=== PATIENT | male | born 2000 | race African-American/Black ===

== ENCOUNTER 2022-05-15 14:34 | Emergency (ER) | payer OTHER, SELFPAY ==
[2022-05-15 15:55] LABS: Absolute Lymphocytes (CBC) 1.2 K/uL (0.7-4.9); Lymphocytes % 30.4 % (15.3-44.8); MCV 87.5 fL (80-100); MPV 8.5 fL (7.6-11.3); RBC Red Blood Cell Count 5.48 M/uL (4.33-5.43)
[2022-05-15 16:07] LABS: Potassium 3.6 mmol/L (3.5-5.1)
[2022-05-15 18:08] VITALS: BP 138/78; TEMP 97.7; O2SAT 95
--- NOTE | 2022-05-17 09:35 | ER ---
Nurse's Notes [facility] Name: Otis Kerr Age: 21 yrs Sex: Male : 2000 Arrival Date: 05/15/2022 Time: 14:39 Bed 11 Private MD: Diagnosis: Acute pharyngitis, unspecified Presentation: 05/15 14:46 Chief complaint: Patient states: pt presented to ED reporting recent dx for covid and kelly strep throat x 2 days. pt reports coughing and having blood tinge sputum. Coronavirus screen: Vaccine status: Patient reports being unvaccinated. Client presents with at least one sign or symptom that may indicate coronavirus-19. Standard/surgical mask placed on the client. Ebola Screen: (+) Exposure. Initial Sepsis Screen: Does the patient meet any 2 criteria? No. Patient's initial sepsis screen is negative. Does the patient have a suspected source of infection? No. Patient's initial sepsis screen is negative. Risk Assessment: Do you want to hurt yourself or someone else? Patient reports no desire to harm self or others. Onset of symptoms was May 15, 2022. 14:46 Method Of Arrival: Ambulatory 14:46 Acuity: ROBIN 3 kelly Historical: - PMHx: 14:48 None; kelly - PSHx: 14:48 None; kelly - Immunization history:: Adult Immunizations up to date. - Social history:: Smoking status: Patient denies any tobacco usage or history of. Patient uses street drugs, marijuana. Screenin:26 Abuse screen: Denies threats or abuse. Denies injuries from another. Nutritional ph screening: No deficits noted. Tuberculosis screening: No symptoms or risk factors identified. Fall Risk None identified. Assessment: 16:25 General: Appears in no apparent distress. comfortable, Behavior is calm, cooperative, ph appropriate for age. Pain: Complains of pain in throat. Neuro: Level of Consciousness is awake, alert, obeys commands, Oriented to person, place, time, situation. Cardiovascular: Capillary refill < 3 seconds in bilateral fingers Patient's skin is warm and dry. Respiratory: Airway is patent Respiratory effort is even, unlabored. Respiratory: Reports cough that is Breath sounds are clear bilaterally. GI:. EENT: Reports pain when swallowing. Derm: Skin is pink, warm \T\ dry. Vital Signs: 14:46 BP 138 / 78; Pulse 95; Resp 19; Temp 97.7(T); Pulse Ox 95% on R/A; Weight 102.06 kg; kelly Height 5 ft. 5 in. (165.10 cm); 14:46 Body Mass Index 37.44 (102.06 kg, 165.10 cm) kelly ED Course: 14:39 Patient arrived in ED. am2 14:48 Triage completed. 15:02 Mitchel Chi PA is PHCP. [facility] 15:02 Timoteo Doty MD is Attending Physician. [facility] 15:47 D-Dimer Sent. kc6 15:47 BMP Sent. kc6 15:47 CBC with Diff Sent. kc6 15:47 Inserted saline lock: 20 gauge in right antecubital area, using aseptic technique. kc6 Blood collected. 16:25 Elaina Dubose, RN is Primary Nurse. ph 16:26 Arm band placed on Patient placed in an exam room. ph 16:26 Patient has correct armband on for positive identification. Bed in low position. Call ph light in reach. Side rails up X 1. 17:00 No provider procedures requiring assistance completed. IV discontinued, intact, ph bleeding controlled, No redness/swelling at site. Pressure dressing applied. Administered Medications: No medications were administered Medication: 16:26 VIS not applicable for this client. ph Outcome: 16:23 Discharge ordered by . [facility] 17:02 Patient left the ED. ph 17:02 Discharged to home ambulatory. ph 17:02 Condition: good 17:02 Discharge instructions given to patient, Instructed on discharge instructions, follow up and referral plans. Demonstrated understanding of instructions, follow-up care. Signatures: Mitchel Chi PA PA Elaina Rock, RN RN Yasmine Nair am2 Katty Wolfe RN RN ha Campbell, Kaitlyn kc6 Corrections: (The following items were deleted from the chart) 14:49 14:48 PMHx: Unable to Obtain; [facility]
--- NOTE | 2022-05-17 09:35 | EDPHYS ---
Physician Documentation [facility] Name: Otis Kerr Age: 21 yrs Sex: Male : 2000 Arrival Date: 05/15/2022 Time: 14:39 Bed 11 Private MD: ED Physician Timoteo Doty HPI: 05/15 15:20 This 21 yrs old Black Male presents to ER via Ambulatory with complaints of Productive jmm Cough - blood. 15:20 The patient or guardian reports cough. Onset: The symptoms/episode began/occurred jmm gradually, 2 day(s) ago. Modifying factors: The symptoms are alleviated by nothing, the symptoms are aggravated by nothing. This is a 21 year old male with no chronic medical conditions the presents emerged department with complaints of coughing up blood. Patient was recently diagnosed with both strep and coronavirus. Patient denies chest pain or shortness of breath. Denies weakness or fatigue.. Historical: - PMHx: 14:48 None; kelly - PSHx: 14:48 None; kelly - Immunization history:: Adult Immunizations up to date. - Social history:: Smoking status: Patient denies any tobacco usage or history of. Patient uses street drugs, marijuana. ROS: 16:20 Constitutional: Negative for fever, chills, and weight loss, Cardiovascular: Negative jmm for chest pain, palpitations, and edema, Respiratory: Negative for shortness of breath, cough, wheezing, and pleuritic chest pain. 16:20 All other systems are negative. Exam: 16:20 Constitutional: This is a well developed, well nourished patient who is awake, alert, jmm and in no acute distress. Head/Face: atraumatic. Eyes: EOMI, no conjunctival erythema appreciated ENT: Moist Mucus Membranes Neck: Trachea midline, Supple Chest/axilla: Normal chest wall appearance and motion. Cardiovascular: Regular rate and rhythm. No edema appreciated Respiratory: Normal respirations, no respiratory distress appreciated Abdomen/GI: Non distended Back: Normal ROM Skin: General appearance color normal MS/ Extremity: Moves all extremities, no obvious deformities appreciated, no edema noted to the lower extremities Neuro: Awake and alert Psych: Behavior is normal, Mood is normal, Patient is cooperative and pleasant Vital Signs: 14:46 BP 138 / 78; Pulse 95; Resp 19; Temp 97.7(T); Pulse Ox 95% on R/A; Weight 102.06 kg; kelly Height 5 ft. 5 in. (165.10 cm); 14:46 Body Mass Index 37.44 (102.06 kg, 165.10 cm) kelly MDM: 15:22 Patient medically screened. [facility] 16:21 Data reviewed: vital signs, nurses notes. Counseling: I had a detailed discussion with [facility] the patient and/or guardian regarding: the historical points, exam findings, and any diagnostic results supporting the discharge/admit diagnosis, the need for outpatient follow up, to return to the emergency department if symptoms worsen or persist or if there are any questions or concerns that arise at home. ED course: Patient is alert and non toxic in appearance in the ED. No signs of resp distress. D-Dimer negative. Patient advised to follow up with pcp and otherwise given strict return precautions. Patient understood and agrees with the plan of care. . 05/15 15:20 Order name: D-Dimer; Complete Time: 16:08 [facility] 05/15 15:20 Order name: BMP; Complete Time: 16:08 [facility] 05/15 15:20 Order name: Saline Lock; Complete Time: 15:47 [facility] 05/15 15:20 Order name: CBC with Diff; Complete Time: 16:08 [facility] Administered Medications: No medications were administered Disposition: 18:21 Co-signature as Attending Physician, Timoteo Doty MD. rn Disposition Summary: 05/15/22 16:23 Discharge Ordered Location: Home [facility] Condition: Stable [facility] Diagnosis - Acute pharyngitis, unspecified [facility] Followup: [facility] - With: Private Physician - When: 2 - 3 days - Reason: Recheck today's complaints, Continuance of care, Re-evaluation by your physician Discharge Instructions: - Discharge Summary Sheet [facility] - Pharyngitis [facility] Forms: - Medication Reconciliation Form [facility] - Thank You Letter [facility] - Antibiotic Education [facility] - Prescription Opioid Use [facility] - Work release form ph Signatures: Dispatcher [employer] EDMS Mitchel Chi PA PA jmm Nieto, Roman, MD MD rn Au-StageKatty raya RN RN ha Corrections: (The following items were deleted from the chart) 14:49 14:48 PMHx: Unable to Obtain; kelly kelly 16:20 15:20 This is a 21 year old male with no chronic med. jmm jmm
== END 2022-05-15 17:02 | disposition home or self-care (01) ==
LOC: ER 14:34
DX: J02.9 Acute pharyngitis, unspecified (principal); R04.2 Hemoptysis
CPT/HCPCS: 36415; 80048; 85025; 85379; 99283

== ENCOUNTER 2022-09-09 20:31 | Emergency (ER) | payer SELFPAY ==
[2022-09-09] MEDS ORDERED: dexAMETHasone 10 MG/ML VIAL ONE (21:14)
[2022-09-09] MEDS ORDERED: AMOX/K CLAV 875 MG TAB ONE (21:14)
--- NOTE | 2022-09-09 21:47 | ER ---
Nurse's Notes [facility] Name: Otis Kerr Age: 22 yrs Sex: Male : 2000 Arrival Date: 09/09/2022 Time: 20:34 Bed DIS3 Private MD: Diagnosis: Acute suppurative otitis media Presentation: 09/09 20:48 Chief complaint: Patient states: sore throat and left ear pain x2 days. Coronavirus kb3 screen: Vaccine status: Patient reports being unvaccinated. Client denies travel out of the [place] in the last 14 days. Ebola Screen: Patient negative for fever greater than or equal to 101.5 degrees Fahrenheit, and additional compatible Ebola Virus Disease symptoms Patient denies exposure to infectious person. Patient denies travel to an Ebola-affected area in the 21 days before illness onset. Initial Sepsis Screen: Does the patient meet any 2 criteria? No. Patient's initial sepsis screen is negative. Does the patient have a suspected source of infection? No. Patient's initial sepsis screen is negative. Risk Assessment: Do you want to hurt yourself or someone else? Patient reports no desire to harm self or others. Onset of symptoms was September 07, 2022. 20:48 Method Of Arrival: Ambulatory kb3 20:48 Acuity: ROBIN 4 kb3 Triage Assessment: 20:51 General: Appears in no apparent distress. Behavior is calm, cooperative. Pain: kb3 Complains of pain in left ear, left aspect of posterior pharynx and right aspect of posterior pharynx Pain does not radiate. Pain currently is 8 out of 10 on a pain scale. EENT: Reports pain in left ear. Historical: - Allergies: 20:51 No Known Allergies; kb3 - Home Meds: 20:51 amlodipine 10 mg tab 1 tab once daily [Active]; kb3 - PMHx: 20:51 Hypertensive disorder; kb3 - PSHx: 20:51 None; kb3 - Immunization history:: Adult Immunizations up to date, Client reports receiving the 2nd dose of the Covid vaccine, Last tetanus immunization: up to date. - Social history:: Smoking status: Patient denies any tobacco usage or history of. Screenin:54 Abuse screen: Denies threats or abuse. Denies injuries from another. Nutritional kd3 screening: No deficits noted. Tuberculosis screening: No symptoms or risk factors identified. Fall Risk None identified. Vital Signs: 20:48 Pulse 97; Resp 20; Temp 98.3; Pulse Ox 100% ; Weight 96.16 kg; Height 5 ft. 6 in. kb3 (167.64 cm); Pain 8/10; 20:53 BP 153 / 100; kb3 21:24 BP 145 / 94; Pulse 98; Resp 16; Temp 98.7; Pulse Ox 98% ; rv1 20:48 Body Mass Index 34.22 (96.16 kg, 167.64 cm) kb3 ED Course: 20:34 Patient arrived in ED. bp1 20:51 Triage completed. kb3 20:51 Arm band placed on left wrist. kb3 20:54 Latonia Deleon FNP-C is [facility]. snw 20:54 Thomas Julian MD is Attending Physician. snw 21:01 Halina Aguilera, RN is Primary Nurse. kd3 21:14 Flu Sent. rv1 21:33 Flu Sent. kd3 21:54 Patient has correct armband on for positive identification. kd3 21:54 No provider procedures requiring assistance completed. Patient did not have IV access kd3 during this emergency room visit. Administered Medications: 21:18 Drug: Augmentin (Amoxicillin-Clavulanate) 875 mg Route: PO; kd3 21:54 Follow up: Response: No adverse reaction kd3 21:18 Drug: Decadron (dexamethasone) 10 mg Route: IM; Site: left deltoid; kd3 21:54 Follow up: Response: No adverse reaction kd3 Medication: 21:54 VIS not applicable for this client. kd3 Outcome: 21:46 Discharge ordered by . snw 21:54 Discharged to home ambulatory. kd3 21:54 Condition: stable 21:54 Discharge instructions given to patient, Instructed on discharge instructions, follow up and referral plans. medication usage, Demonstrated understanding of instructions, follow-up care, medications, Prescriptions given X 3. 21:55 Patient left the ED. kd3 Signatures: Latonia Deleon FNP-C [employer] MA[employer]GER [employer] Fabiola Cavazos bp1 Halina Aguilera, RN RN kd3 Phyllis Bernstein, ELIAN RN kb3 Rosi Issa rv1
--- NOTE | 2022-09-09 21:47 | EDPHYS ---
Physician Documentation [facility] Name: Otis Kerr Age: 22 yrs Sex: Male : 2000 Arrival Date: 09/09/2022 Time: 20:34 Bed DIS3 Private MD: ED Physician Thomas Julian HPI: 09/09 21:16 This 22 yrs old Black Male presents to ER via Ambulatory with complaints of Ear Pain, snw Sore Throat. 21:16 The patient presents with a fullness, pain, tenderness. The complaints affect the left snw ear. Onset: The symptoms/episode began/occurred suddenly, 2 day(s) ago, and became persistent. Modifying factors: The symptoms are alleviated by nothing. Severity of symptoms: At their worst the symptoms were moderate. The patient has experienced a previous episode. The patient has not recently seen a physician. using left over cortisporin drops and placing cotton balls in canal. Historical: - Allergies: 20:51 No Known Allergies; kb3 - Home Meds: 20:51 amlodipine 10 mg tab 1 tab once daily [Active]; kb3 - PMHx: 20:51 Hypertensive disorder; kb3 - PSHx: 20:51 None; kb3 - Immunization history:: Adult Immunizations up to date, Client reports receiving the 2nd dose of the Covid vaccine, Last tetanus immunization: up to date. - Social history:: Smoking status: Patient denies any tobacco usage or history of. ROS: 21:15 Constitutional: Negative for fever, chills, and weight loss, Eyes: Negative for injury, snw pain, redness, and discharge, Neck: Negative for injury, pain, and swelling, Cardiovascular: Negative for chest pain, palpitations, and edema, Respiratory: Negative for shortness of breath, cough, wheezing, and pleuritic chest pain, Abdomen/GI: Negative for abdominal pain, nausea, vomiting, diarrhea, and constipation, Back: Negative for injury and pain, : Negative for injury, bleeding, discharge, and swelling, MS/Extremity: Negative for injury and deformity, Skin: Negative for injury, rash, and discoloration, Neuro: Negative for headache, weakness, numbness, tingling, and seizure. 21:15 ENT: Positive for ear pain, sore throat, using cortisporin drops. Exam: 21:15 Constitutional: This is a well developed, well nourished patient who is awake, alert, snw and in no acute distress. Head/Face: Normocephalic, atraumatic. Eyes: Pupils equal round and reactive to light, extra-ocular motions intact. Lids and lashes normal. Conjunctiva and sclera are non-icteric and not injected. Cornea within normal limits. Periorbital areas with no swelling, redness, or edema. Neck: Trachea midline, no thyromegaly or masses palpated, and no cervical lymphadenopathy. Supple, full range of motion without nuchal rigidity, or vertebral point tenderness. No Meningismus. Chest/axilla: Normal chest wall appearance and motion. Nontender with no deformity. No lesions are appreciated. Cardiovascular: Regular rate and rhythm with a normal S1 and S2. No gallops, murmurs, or rubs. Normal PMI, no JVD. No pulse deficits. Respiratory: Lungs have equal breath sounds bilaterally, clear to auscultation and percussion. No rales, rhonchi or wheezes noted. No increased work of breathing, no retractions or nasal flaring. Abdomen/GI: Soft, non-tender, with normal bowel sounds. No distension or tympany. No guarding or rebound. No evidence of tenderness throughout. Back: No spinal tenderness. No costovertebral tenderness. Full range of motion. Skin: Warm, dry with normal turgor. Normal color with no rashes, no lesions, and no evidence of cellulitis. MS/ Extremity: Pulses equal, no cyanosis. Neurovascular intact. Full, normal range of motion. Neuro: Awake and alert, GCS 15, oriented to person, place, time, and situation. Cranial nerves II-XII grossly intact. Motor strength 5/5 in all extremities. Sensory grossly intact. Cerebellar exam normal. Normal gait. 21:15 ENT: External ear(s): are unremarkable, Ear canal(s): foreign body, a piece of a Q-tip, in the left external ear canal, or exudate, Nose: is normal, Mouth: is normal, Posterior pharynx: erythema, that is moderate, Voice: is normal. Vital Signs: 20:48 Pulse 97; Resp 20; Temp 98.3; Pulse Ox 100% ; Weight 96.16 kg; Height 5 ft. 6 in. kb3 (167.64 cm); Pain 8/10; 20:53 BP 153 / 100; kb3 21:24 BP 145 / 94; Pulse 98; Resp 16; Temp 98.7; Pulse Ox 98% ; rv1 20:48 Body Mass Index 34.22 (96.16 kg, 167.64 cm) kb3 MDM: 21:06 Patient medically screened. snw 21:17 Data reviewed: vital signs, nurses notes. Data interpreted: Pulse oximetry: on room air snw is 100 %. Interpretation: normal. Counseling: I had a detailed discussion with the patient and/or guardian regarding: the historical points, exam findings, and any diagnostic results supporting the discharge/admit diagnosis, the presence of at least one elevated blood pressure reading (>120/80) during this emergency department visit, the need for outpatient follow up, to return to the emergency department if symptoms worsen or persist or if there are any questions or concerns that arise at home. Response to treatment: the patient's symptoms have mildly improved after treatment. Special discussion: I have referred the patient to see his PCP for further evaluation of high blood pressure. Based on the history and exam findings, there is no indication for further emergent testing or inpatient evaluation. I discussed with the patient/guardian the need to see the ENT specialist for further evaluation of the symptoms. I discussed with the patient/guardian the need to see the primary care provider for further evaluation of the symptoms. 09/09 21:05 Order name: Flu; Complete Time: 21:45 snw Administered Medications: 21:18 Drug: Augmentin (Amoxicillin-Clavulanate) 875 mg Route: PO; kd3 21:54 Follow up: Response: No adverse reaction kd3 21:18 Drug: Decadron (dexamethasone) 10 mg Route: IM; Site: left deltoid; kd3 21:54 Follow up: Response: No adverse reaction kd3 Disposition: 09/10 02:11 Co-signature as Attending Physician, Thomas Julian MD I agree with the assessment and rt plan of care. Disposition Summary: 09/09/22 21:46 Discharge Ordered Location: Home snw Condition: Stable snw Diagnosis - Acute suppurative otitis media snw Followup: snw - With: Emergency Department - When: As needed - Reason: Worsening of condition Followup: snw - With: Private Physician - When: 2 - 3 days - Reason: Recheck today's complaints, Continuance of care, Re-evaluation by your physician Discharge Instructions: - Discharge Summary Sheet snw - Otitis Media, Adult snw - Upper Respiratory Infection, Adult snw Forms: - Medication Reconciliation Form snw - Thank You Letter snw - Antibiotic Education snw - Prescription Opioid Use snw - Work release form snw Prescriptions: - Augmentin 875-125 mg Oral Tablet - take 1 tablet by ORAL route every 12 hours for 10 days; 20 tablet; Refills: 0, snw Product Selection Permitted - Zyrtec 10 mg Oral Tablet - take 1 tablet by ORAL route once daily As needed; 20 tablet; Refills: 0, snw Product Selection Permitted - Pepcid 20 mg Oral Tablet - take 1 tablet by ORAL route once daily; 20 tablet; Refills: 0, Product snw Selection Permitted Signatures: Dispatcher [employer] EDMS Latonia Deleon FNP-C COMPLAINT INVESTIGATOR-Csnw Halina Aguilera RN RN kd3 Phyllis Bernstein RN RN kb3 Thomas Julian MD MD rt
[2022-09-09 22:03] VITALS: BP 145/94; TEMP 98.7; O2SAT 98
== END 2022-09-09 21:55 | disposition home or self-care (01) ==
LOC: ER 20:31
DX: H66.002 Acute suppurative otitis media without spontaneous rupture of ear drum, left ear (principal); I10 Essential (primary) hypertension
CPT/HCPCS: 87804; 96372; 99283; J1100

== ENCOUNTER 2022-10-01 10:38 | Emergency (ER) | payer SELFPAY ==
--- NOTE | 2022-10-01 10:56 | ER ---
Nurse's Notes [facility] Name: Otis Kerr Age: 22 yrs Sex: Male : 2000 Arrival Date: 10/01/2022 Time: 10:39 Bed 13 Private MD: Diagnosis: Acute serous otitis media, left ear Presentation: 10/01 10:46 Chief complaint: Patient states: "I was told to get my ear checked out after I finished ss my antibiotics. I don't have pain, but sometimes in the morning when I'm laying down, it feels clogged.". Coronavirus screen: Client denies travel out of the [place] in the last 14 days. Ebola Screen: Patient denies exposure to infectious person. Patient denies travel to an Ebola-affected area in the 21 days before illness onset. Initial Sepsis Screen: Does the patient meet any 2 criteria? No. Patient's initial sepsis screen is negative. Does the patient have a suspected source of infection? No. Patient's initial sepsis screen is negative. Risk Assessment: Do you want to hurt yourself or someone else? Patient reports no desire to harm self or others. Onset of symptoms is unknown. 10:46 Method Of Arrival: Ambulatory ss 10:46 Acuity: ROBIN 5 ss Historical: - Allergies: 10:48 No Known Allergies; ss - Home Meds: 11:02 amlodipine 10 mg tab 1 tab once daily [Active]; kc6 - PMHx: 10:48 Hypertensive disorder; ss - PSHx: 11:02 None; kc6 - Immunization history:: Client reports having NOT received the Covid vaccine. - Social history:: Smoking status: Patient denies any tobacco usage or history of. Screenin:58 [facility] ED Fall Risk Assessment (Adult) History of falling in the last 3 months, kc6 including since admission No falls in past 3 months (0 pts) Confusion or Disorientation No (0 pts) Intoxicated or Sedated No (0 pts) Impaired Gait No (0 pts) Mobility Assist Device Used No (0 pt) Altered Elimination No (0 pt) Score/Fall Risk Level 0 - 2 = Low Risk. Abuse screen: Denies threats or abuse. Denies injuries from another. Nutritional screening: No deficits noted. Tuberculosis screening: No symptoms or risk factors identified. Assessment: 10:56 General: Appears in no apparent distress. comfortable, Behavior is calm, cooperative, kc6 appropriate for age. Pain: Complains of pain in left ear Pain does not radiate. Pain currently is 2 out of 10 on a pain scale. Quality of pain is described as sharp, Pain began gradually, Is intermittent, Alleviated by rest, Also complains of no other associated symptoms. Neuro: Almeida Agitation-Sedation Scale (RASS): 0 - Alert and Calm Level of Consciousness is awake, alert, obeys commands, Oriented to person, place, time, situation, Appropriate for age. Cardiovascular: Heart tones S1 S2 present Capillary refill < 3 seconds. Respiratory: Airway is patent Trachea midline Respiratory effort is even, unlabored, Respiratory pattern is regular, symmetrical, Breath sounds are clear bilaterally. GI: No signs and/or symptoms were reported involving the gastrointestinal system. : No signs and/or symptoms were reported regarding the genitourinary system. EENT: Reports pain in left ear. Derm: No signs and/or symptoms reported regarding the dermatologic system. Skin is intact, Skin is pink, warm \\T\\ dry. Musculoskeletal: No signs and/or symptoms reported regarding the musculoskeletal system. Circulation, motion, and sensation intact. Capillary refill < 3 seconds, Range of motion: intact in all extremities. Vital Signs: 10:46 BP 130 / 84; Pulse 83; Resp 16; Temp 97.9(O); Pulse Ox 100% on R/A; Weight 96.16 kg; ss Pain 0/10; ED Course: 10:39 Patient arrived in ED. as 10:40 [facility] 10:40 Mian Ag MD is Attending Physician. [facility] 10:48 Triage completed. ss 10:48 Domonique Navarro RN is Primary Nurse. kc6 10:48 Arm band placed on right wrist. ss 10:58 Patient has correct armband on for positive identification. Bed in low position. Call kc6 light in reach. Side rails up X 1. 10:58 No provider procedures requiring assistance completed. Patient did not have IV access kc6 during this emergency room visit. Administered Medications: No medications were administered Medication: 11:02 VIS not applicable for this client. kc6 Outcome: 10:56 Discharge ordered by . [facility] 11:02 Discharged to home ambulatory. kc6 11:02 Condition: stable 11:02 Discharge instructions given to patient, Instructed on discharge instructions, follow up and referral plans. medication usage, Demonstrated understanding of instructions, follow-up care, medications, Prescriptions given X 1. 11:03 Patient left the ED. kc6 Signatures: Mitchel Chi PA PA jmm Martinez, Amelia as Smirch, Shelby, Domonique Toscano RN, RN RN kc6
--- NOTE | 2022-10-01 10:56 | EDPHYS ---
Physician Documentation [facility] Name: Otis Kerr Age: 22 yrs Sex: Male : 2000 Arrival Date: 10/01/2022 Time: 10:39 Bed 13 Private MD: ED Physician Mian Ag HPI: 10/01 12:31 This 22 yrs old Black Male presents to ER via Ambulatory with complaints of recheck on [facility] ear infection. 12:31 Onset: The symptoms/episode began/occurred gradually, 1 week(s) ago. Is a 22-year-old [facility] male with history of hypertension the presents emerged department with complaints of ongoing left ear drainage. Patient was treated with oral antibiotics approximately a week ago and has finished this course. States he cannot hear well in the left ear. Historical: - Allergies: 10:48 No Known Allergies; ss - Home Meds: 11:02 amlodipine 10 mg tab 1 tab once daily [Active]; kc6 - PMHx: 10:48 Hypertensive disorder; ss - PSHx: 11:02 None; kc6 - Immunization history:: Client reports having NOT received the Covid vaccine. - Social history:: Smoking status: Patient denies any tobacco usage or history of. ROS: 12:31 Constitutional: Negative for fever, chills, and weight loss. [facility] 12:31 ENT: Positive for ear pain. 12:31 All other systems are negative. Exam: 12:31 Constitutional: This is a well developed, well nourished patient who is awake, alert, jmm and in no acute distress. Head/Face: atraumatic. Eyes: EOMI, no conjunctival erythema appreciated 12:31 Neck: Trachea midline, Supple Chest/axilla: Normal chest wall appearance and motion. Cardiovascular: Regular rate and rhythm. No edema appreciated Respiratory: Normal respirations, no respiratory distress appreciated Abdomen/GI: Non distended Back: Normal ROM Skin: General appearance color normal MS/ Extremity: Moves all extremities, no obvious deformities appreciated, no edema noted to the lower extremities Neuro: Awake and alert Psych: Behavior is normal, Mood is normal, Patient is cooperative and pleasant 12:31 ENT: Ear canal(s): purulent discharge, that is moderate, in the left canal. Vital Signs: 10:46 BP 130 / 84; Pulse 83; Resp 16; Temp 97.9(O); Pulse Ox 100% on R/A; Weight 96.16 kg; ss Pain 0/10; MDM: 10:55 Patient medically screened. [facility] 12:33 Data reviewed: vital signs, nurses notes. ED course: A small curette was used to remove jmm the hard and purulent material from the left canal. I did visualize an erythematous tympanic membrane. No obvious perforation appreciated. Patient will be initiated on cephalosporin. Advised follow-up with ENT for further evaluation. Patient understood and agrees plan of care.. Administered Medications: No medications were administered Disposition Summary: 10/01/22 10:56 Discharge Ordered Location: Home [facility] Condition: Stable [facility] Diagnosis - Acute serous otitis media, left ear [facility] Followup: [facility] - With: Private Physician - When: 2 - 3 days - Reason: Recheck today's complaints, Continuance of care, Re-evaluation by your physician Discharge Instructions: - Discharge Summary Sheet [facility] - Otitis Media, Adult [facility] Forms: - Medication Reconciliation Form [facility] - Thank You Letter [facility] - Antibiotic Education [facility] - Prescription Opioid Use [facility] Prescriptions: - cefdinir 300 mg Oral capsule - take 1 capsule by ORAL route every 12 hours for 10 days; 20 capsule; Refills: [facility] 0, Product Selection Permitted Signatures: Mitchel Chi PA PA jmm Smirch, Shelby, ELIAN RN Domonique Esquivel RN RN kc6
[2022-10-01 11:07] VITALS: BP 130/84; TEMP 97.9; O2SAT 100
== END 2022-10-01 11:03 | disposition home or self-care (01) ==
LOC: ER 10:38
DX: H65.02 Acute serous otitis media, left ear (principal)
CPT/HCPCS: 99282

== ENCOUNTER 2022-10-03 13:18 | Emergency (ER) | payer SELFPAY ==
--- NOTE | 2022-10-03 13:29 | EDPHYS ---
Physician Documentation [facility] Name: Otis Kerr Age: 22 yrs Sex: Male : 2000 Arrival Date: 10/03/2022 Time: 13:20 Bed IW1 Private MD: ED Physician Regan Pride HPI: 10/03 13:28 This 22 yrs old Black Male presents to ER via Ambulatory with complaints of Ear Pain. kb 13:28 The patient presents with drainage, a fullness. The complaints affect the right ear. kb Onset: The symptoms/episode began/occurred today. Modifying factors: The symptoms are alleviated by nothing, the symptoms are aggravated by nothing. Associated signs and symptoms: The patient has no apparent associated signs or symptoms. Severity of symptoms: At their worst the symptoms were moderate in the emergency department the symptoms are unchanged. The patient has not experienced similar symptoms in the past. The patient has not recently seen a physician. Pt reports "clogged and draining" right ear that started this morning. . Historical: - Allergies: 13:27 No Known Allergies; iw - Home Meds: 13:27 amlodipine 10 mg tab 1 tab once daily [Active]; iw - PMHx: 13:27 Hypertensive disorder; iw ROS: 13:27 Constitutional: Negative for fever, chills, and weight loss. kb 13:27 ENT: Positive for drainage from ear(s), ear pain. 13:27 All other systems are negative. Exam: 13:27 Constitutional: This is a well developed, well nourished patient who is awake, alert, kb and in no acute distress. Head/Face: Normocephalic, atraumatic. Cardiovascular: Regular rate and rhythm with a normal S1 and S2. No gallops, murmurs, or rubs. No pulse deficits. Respiratory: Respirations even and unlabored. No increased work of breathing. Talking in full sentences Skin: Warm, dry with normal turgor. Normal color. MS/ Extremity: Pulses equal, no cyanosis. Neurovascular intact. Full, normal range of motion. Neuro: Awake and alert, GCS 15, oriented to person, place, time, and situation. Moves all extremities. Normal gait. Psych: Awake, alert, with orientation to person, place and time. Behavior, mood, and affect are within normal limits. 13:27 ENT: External ear(s): are unremarkable, Ear canal(s): erythema, that is minimal, bilaterally, purulent discharge, that is moderate, bilaterally, swelling, that is minimal, bilaterally, TM's: are normal. Vital Signs: 13:27 BP 138 / 90; Pulse 90; Resp 16; Temp 98.2; Pulse Ox 100% on R/A; iw MDM: 13:27 Patient medically screened. kb 13:27 Data reviewed: vital signs, nurses notes. Data interpreted: Pulse oximetry: on room air kb is 100 %. Interpretation: normal. Counseling: I had a detailed discussion with the patient and/or guardian regarding: the historical points, exam findings, and any diagnostic results supporting the discharge/admit diagnosis, the need for outpatient follow up, an ENT specialist, to return to the emergency department if symptoms worsen or persist or if there are any questions or concerns that arise at home. Administered Medications: No medications were administered Disposition: 16:19 Co-signature as Attending Physician, Regan Pride DO I was immediately available onsite ms3 in the emergency department for consultation in the care of the patient. Disposition Summary: 10/03/22 13:29 Discharge Ordered Location: Home kb Condition: Stable kb Diagnosis - Otitis externa in other diseases classified elsewhere, bilateral kb Followup: kb - With: Emergency Department - When: As needed - Reason: Worsening of condition Followup: kb - With: Private Physician - When: 2 - 3 days - Reason: Recheck today's complaints, Continuance of care, Re-evaluation by your physician Discharge Instructions: - Discharge Summary Sheet kb - Otitis Externa, [id number] kb - Ear Drops, Adult, [id number] kb Forms: - Medication Reconciliation Form kb - Thank You Letter kb - Antibiotic Education kb - Prescription Opioid Use kb Prescriptions: - Ciprodex 0.3-0.1 % Otic Drops, Suspension - instill 4 drops by OTIC route every 12 hours for 7 days , for ears ONLY; 1 kb Container; Refills: 0, Product Selection Permitted Signatures: Roxana Smiley, Esther Ohara RN RN iw Sims, Marcus, DO DO ms3
--- NOTE | 2022-10-03 13:29 | ER ---
Nurse's Notes [facility] Name: Otis Kerr Age: 22 yrs Sex: Male : 2000 Arrival Date: 10/03/2022 Time: 13:20 Bed IW1 Private MD: Diagnosis: Otitis externa in other diseases classified elsewhere, bilateral Presentation: 10/03 13:26 Chief complaint: Patient states: faby ear pain has been on oral abx. Coronavirus screen: iw At this time, the client does not indicate any symptoms associated with coronavirus-19. Ebola Screen: Patient negative for fever greater than or equal to 101.5 degrees Fahrenheit, and additional compatible Ebola Virus Disease symptoms Patient denies exposure to infectious person. Patient denies travel to an Ebola-affected area in the 21 days before illness onset. No symptoms or risks identified at this time. Initial Sepsis Screen: Does the patient meet any 2 criteria? No. Patient's initial sepsis screen is negative. Does the patient have a suspected source of infection? No. Patient's initial sepsis screen is negative. Risk Assessment: Do you want to hurt yourself or someone else? Patient reports no desire to harm self or others. Onset of symptoms was October 03, 2022. 13:26 Method Of Arrival: Ambulatory iw 13:26 Acuity: ROBIN 5 iw Historical: - Allergies: 13:27 No Known Allergies; iw - Home Meds: 13:27 amlodipine 10 mg tab 1 tab once daily [Active]; iw - PMHx: 13:27 Hypertensive disorder; iw Vital Signs: 13:27 BP 138 / 90; Pulse 90; Resp 16; Temp 98.2; Pulse Ox 100% on R/A; iw ED Course: 13:20 Patient arrived in ED. rg4 13:21 [facility] kb 13:21 Regan Pride DO is Attending Physician. kb 13:27 Triage completed. iw 13:27 Arm band placed on. iw 13:28 Esther Chisholm, RN is Primary Nurse. iw Administered Medications: No medications were administered Outcome: 13:29 Discharge ordered by . kb 13:37 Patient left the ED. iw Signatures: Roxana Smiley FNP-C FNP-Esther Fitzgerald, RN RN iw Apple Alvarez rg4 Corrections: (The following items were deleted from the chart) 13:28 13:27 Pulse 90bpm; Resp 16bpm; Pulse Ox 100% RA; Temp 98.2F; iw iw
[2022-10-03 13:44] VITALS: BP 138/90; TEMP 98.2; O2SAT 100
== END 2022-10-03 13:37 | disposition home or self-care (01) ==
LOC: ER 13:18
DX: H60.8X3 Other otitis externa, bilateral (principal); I10 Essential (primary) hypertension
CPT/HCPCS: 99281

== ENCOUNTER 2022-10-14 16:42 | Emergency (ER) | payer SELFPAY ==
--- NOTE | 2022-10-14 17:23 | ER ---
Nurse's Notes [facility] Name: Otis Kerr Age: 22 yrs Sex: Male : 2000 Arrival Date: 10/14/2022 Time: 16:43 Bed IW3 Private MD: Diagnosis: Pruritus, unspecified Presentation: 10/14 17:05 Chief complaint: Patient states: head to toe itching for 3 days or more. Coronavirus kb3 screen: Vaccine status: Patient reports being unvaccinated. Client denies travel out of the [place] in the last 14 days. Ebola Screen: Patient negative for fever greater than or equal to 101.5 degrees Fahrenheit, and additional compatible Ebola Virus Disease symptoms Patient denies exposure to infectious person. Patient denies travel to an Ebola-affected area in the 21 days before illness onset. Initial Sepsis Screen: Does the patient meet any 2 criteria? No. Patient's initial sepsis screen is negative. Does the patient have a suspected source of infection? No. Patient's initial sepsis screen is negative. Risk Assessment: Do you want to hurt yourself or someone else? Patient reports no desire to harm self or others. Onset of symptoms was October 10, 2022. 17:05 Method Of Arrival: Ambulatory kb3 17:05 Acuity: ROBIN 4 kb3 Triage Assessment: 17:07 General: Appears in no apparent distress. Behavior is calm, cooperative. Pain: Denies kb3 pain. Historical: - Allergies: 17:07 No Known Allergies; kb3 - Home Meds: 17:07 amlodipine 10 mg tab 1 tab once daily [Active]; kb3 - PMHx: 17:07 Hypertensive disorder; kb3 - PSHx: 17:07 None; kb3 - Immunization history:: Adult Immunizations up to date, Client reports having NOT received the Covid vaccine. Last tetanus immunization: unknown. - Social history:: Smoking status: Patient denies any tobacco usage or history of. Screenin:10 [facility] ED Fall Risk Assessment (Adult) History of falling in the last 3 months, kb3 including since admission No falls in past 3 months (0 pts) Confusion or Disorientation No (0 pts) Intoxicated or Sedated No (0 pts) Impaired Gait No (0 pts) Mobility Assist Device Used No (0 pt) Altered Elimination No (0 pt) Score/Fall Risk Level 0 - 2 = Low Risk Oriented to surroundings, Maintained a safe environment, Educated pt \T\ family on fall prevention, incl call for assistance when getting out of bed, Assessed \T\ reinforced patient's understanding of fall precautions, Provided non-skid footwear, Hourly rounding (assess needs \T\ fall precautionary measures) done, Used ambulatory aids as needed (educated on \T\ assisted with), Used gait belt as appropriate. Abuse screen: Denies threats or abuse. Denies injuries from another. Nutritional screening: No deficits noted. Tuberculosis screening: No symptoms or risk factors identified. Assessment: 17:10 General: see triage note. kb3 17:10 Derm: Reports itching. kb3 Vital Signs: 17:05 BP 127 / 88; Pulse 92; Resp 20; Temp 98.8; Pulse Ox 99% ; Weight 96.16 kg; Height 5 ft. kb3 6 in. (167.64 cm); Pain 0/10; 17:05 Body Mass Index 34.22 (96.16 kg, 167.64 cm) kb3 ED Course: 16:43 Patient arrived in ED. rg4 16:48 Latonia Deleon FNP-C [facility] snw 16:48 Timoteo Doty MD is Attending Physician. snw 17:07 Triage completed. kb3 17:07 Arm band placed on right wrist. kb3 17:10 Patient has correct armband on for positive identification. kb3 17:10 No provider procedures requiring assistance completed. Patient did not have IV access kb3 during this emergency room visit. 17:54 Phyllis Bernstein, RN is Primary Nurse. kb3 Administered Medications: No medications were administered Medication: 17:10 VIS not applicable for this client. kb3 Outcome: 17:23 Discharge ordered by . snw 17:30 Discharged to home ambulatory. kb3 17:30 Condition: stable kb3 17:30 Discharge instructions given to patient, Instructed on discharge instructions, follow up and referral plans. medication usage, Demonstrated understanding of instructions, follow-up care, medications, Prescriptions given X 3. 17:57 Patient left the ED. kb3 Signatures: Latonia Deleon FNP-C RN CLINICAL-Rheaw Apple Alvarez rg4 Phyllis Bernstein, RN RN kb3 Corrections: (The following items were deleted from the chart) 17:55 17:05 Pulse 92bpm; Resp 20bpm; Pulse Ox 99%; Temp 98.8F; 96.16 kg; Height 5 ft. 6 in.; kb3 BMI: 34.2; kb3
--- NOTE | 2022-10-14 17:23 | EDPHYS ---
Physician Documentation [facility] Name: Otis Kerr Age: 22 yrs Sex: Male : 2000 Arrival Date: 10/14/2022 Time: 16:43 Bed IW3 Private MD: ED Physician Timoteo Doty HPI: 10/14 17:31 This 22 yrs old Black Male presents to ER via Ambulatory with complaints of Itching All snw Over. 17:31 The patient's rash thought to be caused by an unknown cause. The rash is located on the snw body diffusely. The rash can be described as patchy. Onset: The symptoms/episode began/occurred acutely. Associated signs and symptoms: Pertinent positives: itching, Pertinent negatives: fever, nausea, Pain swelling of lips, swelling of throat, swelling of tongue. Severity of symptoms: At their worst the symptoms were mild moderate. Treatment given at home: none. The patient has not experienced similar symptoms in the past. The patient has been recently seen by a physician: The patient has been recently seen at the [facility] Emergency Department, for unrelated complaints. Historical: - Allergies: 17:07 No Known Allergies; kb3 - Home Meds: 17:07 amlodipine 10 mg tab 1 tab once daily [Active]; kb3 - PMHx: 17:07 Hypertensive disorder; kb3 - PSHx: 17:07 None; kb3 - Immunization history:: Adult Immunizations up to date, Client reports having NOT received the Covid vaccine. Last tetanus immunization: unknown. - Social history:: Smoking status: Patient denies any tobacco usage or history of. ROS: 17:29 Constitutional: Negative for fever, chills, and weight loss, Eyes: Negative for injury, snw pain, redness, and discharge, ENT: Negative for injury, pain, and discharge, Neck: Negative for injury, pain, and swelling, Cardiovascular: Negative for chest pain, palpitations, and edema, Respiratory: Negative for shortness of breath, cough, wheezing, and pleuritic chest pain, Abdomen/GI: Negative for abdominal pain, nausea, vomiting, diarrhea, and constipation, Back: Negative for injury and pain, : Negative for injury, bleeding, discharge, and swelling, MS/Extremity: Negative for injury and deformity, Neuro: Negative for headache, weakness, numbness, tingling, and seizure, Psych: Negative for depression, anxiety, suicide ideation, homicidal ideation, and hallucinations. 17:29 Skin: Positive for rash, itching. Exam: 17:28 Constitutional: This is a well developed, well nourished patient who is awake, alert, snw and in no acute distress. Head/Face: Normocephalic, atraumatic. Eyes: Pupils equal round and reactive to light, extra-ocular motions intact. Lids and lashes normal. Conjunctiva and sclera are non-icteric and not injected. Cornea within normal limits. Periorbital areas with no swelling, redness, or edema. ENT: Nares patent. No nasal discharge, no septal abnormalities noted. Tympanic membranes are normal and external auditory canals are clear. Oropharynx with no redness, swelling, or masses, exudates, or evidence of obstruction, uvula midline. Mucous membranes moist. Neck: Trachea midline, no thyromegaly or masses palpated, and no cervical lymphadenopathy. Supple, full range of motion without nuchal rigidity, or vertebral point tenderness. No Meningismus. Chest/axilla: Normal chest wall appearance and motion. Nontender with no deformity. No lesions are appreciated. Cardiovascular: Regular rate and rhythm with a normal S1 and S2. No gallops, murmurs, or rubs. Normal PMI, no JVD. No pulse deficits. Respiratory: Lungs have equal breath sounds bilaterally, clear to auscultation and percussion. No rales, rhonchi or wheezes noted. No increased work of breathing, no retractions or nasal flaring. Abdomen/GI: Soft, non-tender, with normal bowel sounds. No distension or tympany. No guarding or rebound. No evidence of tenderness throughout. Back: No spinal tenderness. No costovertebral tenderness. Full range of motion. MS/ Extremity: Pulses equal, no cyanosis. Neurovascular intact. Full, normal range of motion. Neuro: Awake and alert, GCS 15, oriented to person, place, time, and situation. Cranial nerves II-XII grossly intact. Motor strength 5/5 in all extremities. Sensory grossly intact. Cerebellar exam normal. Normal gait. Psych: Awake, alert, with orientation to person, place and time. Behavior, mood, and affect are within normal limits. 17:28 Skin: Appearance: normal except for affected area, consistent with scabies. Vital Signs: 17:05 BP 127 / 88; Pulse 92; Resp 20; Temp 98.8; Pulse Ox 99% ; Weight 96.16 kg; Height 5 ft. kb3 6 in. (167.64 cm); Pain 0/10; 17:05 Body Mass Index 34.22 (96.16 kg, 167.64 cm) kb3 MDM: 17:09 Patient medically screened. snw 17:28 Data reviewed: vital signs, nurses notes. Data interpreted: Pulse oximetry: on room air snw is 99 %. Interpretation: normal. Test interpretation: by ED physician or midlevel provider: none. Counseling: I had a detailed discussion with the patient and/or guardian regarding: the historical points, exam findings, and any diagnostic results supporting the discharge/admit diagnosis, the need for outpatient follow up, to return to the emergency department if symptoms worsen or persist or if there are any questions or concerns that arise at home. Special discussion: Based on the history and exam findings, there is no indication for further emergent testing or inpatient evaluation. I discussed with the patient/guardian the need to see the primary care provider for further evaluation of the symptoms. 17:29 Differential diagnosis: allergic reaction, scabies, viral exanthum. snw Administered Medications: No medications were administered Disposition: 18:06 Co-signature as Attending Physician, Timoteo Doty MD. rn Disposition Summary: 10/14/22 17:23 Discharge Ordered Location: Home snw Condition: Stable snw Diagnosis - Pruritus, unspecified snw Followup: snw - With: Emergency Department - When: As needed - Reason: Worsening of condition Followup: snw - With: Private Physician - When: 2 - 3 days - Reason: Recheck today's complaints, Continuance of care, Re-evaluation by your physician Discharge Instructions: - Discharge Summary Sheet snw - Rash, Adult snw - Pruritus snw - Scabies, Adult snw Forms: - Medication Reconciliation Form snw - Thank You Letter snw - Antibiotic Education snw - Prescription Opioid Use snw Prescriptions: - Elimite 5 % Topical Cream - apply 1 application by TOPICAL route one time Wash after 12 hours.; 60 gram; snw Refills: 0, Product Selection Permitted - Zyrtec 10 mg Oral Tablet - take 1 tablet by ORAL route once daily As needed; 20 tablet; Refills: 0, snw Product Selection Permitted - Pepcid 20 mg Oral Tablet - take 1 tablet by ORAL route once daily; 20 tablet; Refills: 0, Product snw Selection Permitted Signatures: Latonia Deleon, [facility] Timoteo Doty MD MD rn Bradberry, Kelly, RN RN kb3
[2022-10-14 18:02] VITALS: BP 127/88; TEMP 98.8; O2SAT 99
== END 2022-10-14 17:57 | disposition home or self-care (01) ==
LOC: ER 16:42
DX: L29.9 Pruritus, unspecified (principal); I10 Essential (primary) hypertension
CPT/HCPCS: 99282

== ENCOUNTER 2022-12-09 17:56 | Emergency (ER) | payer SELFPAY ==
--- NOTE | 2022-12-09 18:06 | ER ---
Nurse's Notes [facility] Name: Otis Kerr Age: 22 yrs Sex: Male : 2000 Arrival Date: 12/09/2022 Time: 17:59 Bed Waiting Private MD: Diagnosis: Unspecified otitis externa, left ear;Unspecified otitis externa, right ear Presentation: 12/09 18:01 Chief complaint: Patient states: "I cleaned my ear out with a scooping tool a month hb ago, have been having drainage off and on since then, and today it was bloody.". Coronavirus screen: At this time, the client does not indicate any symptoms associated with coronavirus-19. Ebola Screen: No symptoms or risks identified at this time. Initial Sepsis Screen: Does the patient meet any 2 criteria? No. Patient's initial sepsis screen is negative. Does the patient have a suspected source of infection? No. Patient's initial sepsis screen is negative. Risk Assessment: Do you want to hurt yourself or someone else? Patient reports no desire to harm self or others. Onset of symptoms was December 09, 2022. 18:01 Method Of Arrival: Ambulatory hb 18:01 Acuity: ROBIN 4 hb Triage Assessment: 18:05 General: Appears in no apparent distress. Behavior is calm, cooperative. Pain: Denies hb pain. EENT: Reports left ear drainage. Neuro: Level of Consciousness is awake, alert, obeys commands, Oriented to person, place, time, situation. Cardiovascular: Patient's skin is warm and dry. Respiratory: Respiratory effort is even, unlabored, Respiratory pattern is regular, symmetrical. Historical: - Allergies: 18:05 No Known Allergies; hb - Home Meds: 18:05 amlodipine 10 mg tab 1 tab once daily [Active]; hb - PMHx: 18:05 Hypertensive disorder; hb - Immunization history:: Adult Immunizations up to date. - Social history:: Smoking status: Patient denies any tobacco usage or history of. Screenin:06 [facility] ED Fall Risk Assessment (Adult) Score/Fall Risk Level 0 - 2 = Low Risk hb Oriented to surroundings, Maintained a safe environment. Abuse screen: Denies threats or abuse. Denies injuries from another. Nutritional screening: No deficits noted. Tuberculosis screening: No symptoms or risk factors identified. Assessment: 18:06 General: SEE TRIAGE ASSESSMENT. hb Vital Signs: 18:01 BP 162 / 97; Pulse 102; Resp 16; Temp 97.3; Pulse Ox 100% on R/A; Weight 98.43 kg; hb Height 5 ft. 5 in. (165.10 cm); Pain 0/10; 18:01 Body Mass Index 36.11 (98.43 kg, 165.10 cm) hb ED Course: 17:59 Patient arrived in ED. jaAicha 18:00 Roxana Smiley FNP-C is PHCP. kb 18:00 Adrian Breaux MD is Attending Physician. kb 18:01 Arm band placed on. hb 18:05 Triage completed. hb 18:06 Patient has correct armband on for positive identification. hb 18:06 No provider procedures requiring assistance completed. Patient did not have IV access hb during this emergency room visit. Administered Medications: No medications were administered Medication: 18:06 VIS not applicable for this client. hb Outcome: 18:06 Discharge ordered by . kb 18:11 Patient left the ED. hb Signatures: Roxana Smiley FNP-C FNP-Ckb Baxter, Heather, RN RN Iris Carter Corrections: (The following items were deleted from the chart) 18:06 18:01 BP 1 / ???; Pulse 102bpm; Resp 16bpm; Pulse Ox 100% RA; Temp 97.3F; 98.43 kg; hb Height 5 ft. 5 in.; BMI: 36.1; Pain 0/10; hb
--- NOTE | 2022-12-09 18:06 | EDPHYS ---
Physician Documentation [facility] Name: Otis Kerr Age: 22 yrs Sex: Male : 2000 Arrival Date: 12/09/2022 Time: 17:59 Bed Waiting Private MD: YENNIFER Physician Adrian Breaux HPI: 12/09 18:12 This 22 yrs old Black Male presents to ER via Ambulatory with complaints of Ear Pain. kb 18:12 The patient presents with drainage. The complaints affect the left ear. Onset: The kb symptoms/episode began/occurred today. Modifying factors: The symptoms are alleviated by nothing, the symptoms are aggravated by nothing. Associated signs and symptoms: The patient has no apparent associated signs or symptoms. Severity of symptoms: At their worst the symptoms were mild in the emergency department the symptoms are unchanged. The patient has not experienced similar symptoms in the past. The patient has not recently seen a physician. Historical: - Allergies: 18:05 No Known Allergies; hb - Home Meds: 18:05 amlodipine 10 mg tab 1 tab once daily [Active]; hb - PMHx: 18:05 Hypertensive disorder; hb - Immunization history:: Adult Immunizations up to date. - Social history:: Smoking status: Patient denies any tobacco usage or history of. ROS: 18:10 Constitutional: Negative for fever, chills, and weight loss. kb 18:10 ENT: Positive for drainage from ear(s). 18:10 All other systems are negative. Exam: 18:10 Constitutional: This is a well developed, well nourished patient who is awake, alert, kb and in no acute distress. Head/Face: Normocephalic, atraumatic. Cardiovascular: Regular rate and rhythm with a normal S1 and S2. No gallops, murmurs, or rubs. No pulse deficits. Respiratory: Respirations even and unlabored. No increased work of breathing. Talking in full sentences Skin: Warm, dry with normal turgor. Normal color. MS/ Extremity: Pulses equal, no cyanosis. Neurovascular intact. Full, normal range of motion. Neuro: Awake and alert, GCS 15, oriented to person, place, time, and situation. Moves all extremities. Normal gait. 18:10 ENT: External ear(s): are unremarkable, Ear canal(s): purulent discharge, that is minimal, bilaterally, swelling, that is moderate, bilaterally, TM's: not visable, because of discharge. Vital Signs: 18:01 BP 162 / 97; Pulse 102; Resp 16; Temp 97.3; Pulse Ox 100% on R/A; Weight 98.43 kg; hb Height 5 ft. 5 in. (165.10 cm); Pain 0/10; 18:01 Body Mass Index 36.11 (98.43 kg, 165.10 cm) hb MDM: 18:05 Patient medically screened. kb 18:10 Differential diagnosis: otitis media, otitis externa, ruptured TM, acute otalgia. Data kb reviewed: vital signs, nurses notes. Counseling: I had a detailed discussion with the patient and/or guardian regarding: the historical points, exam findings, and any diagnostic results supporting the discharge/admit diagnosis, the need for outpatient follow up, a family practitioner, to return to the emergency department if symptoms worsen or persist or if there are any questions or concerns that arise at home. ED course: Patient is a 22-year-old male who presents for drainage from left ear. On exam ear canal swollen with purulent drainage bilaterally. Educated on eardrops and need for follow-up. Verbal understanding received.. Administered Medications: No medications were administered Disposition Summary: 12/09/22 18:06 Discharge Ordered Location: Home kb Condition: Stable kb Diagnosis - Unspecified otitis externa, left ear kb - Unspecified otitis externa, right ear kb Followup: kb - With: Emergency Department - When: As needed - Reason: Worsening of condition Followup: kb - With: Private Physician - When: 2 - 3 days - Reason: Recheck today's complaints, Continuance of care, Re-evaluation by your physician Discharge Instructions: - Discharge Summary Sheet kb - Otitis Externa, [id number] kb - Ear Drops, Adult, [id number] kb Forms: - Medication Reconciliation Form kb - Thank You Letter kb - Antibiotic Education kb - Prescription Opioid Use kb Prescriptions: - Ciprodex 0.3-0.1 % Otic Drops, Suspension - instill 4 drops by OTIC route every 12 hours for 7 days , for ears ONLY; 1 kb Container; Refills: 0, Product Selection Permitted Signatures: Roxana Smiley, REBEKA-C REBEKA-Ckb Gill, Katty, RN RN hb
[2022-12-09 18:15] VITALS: BP 162/97; TEMP 97.3; O2SAT 100
== END 2022-12-09 18:11 | disposition home or self-care (01) ==
LOC: ER 17:56
DX: H60.93 Unspecified otitis externa, bilateral (principal); I10 Essential (primary) hypertension
CPT/HCPCS: 99281